=== PATIENT | male | born 1960 | race Caucasian/White ===

== ENCOUNTER → 2019-10-12 00:01 | Outpatient (BNVA) | payer SELFPAY | PROVIDERS: Family Provider Nurse Practitioner; PCP Nurse Practitioner; Visit Provider Nurse Practitioner | DX: I10 Essential (primary) hypertension (principal) | CPT/HCPCS: 80053; 80061; 84443 ==

== ENCOUNTER 2020-01-30 13:16 | Outpatient (CLI) | payer SELFPAY ==
--- NOTE | 2020-01-30 13:23 | USCV_ITS ---
Raad Reynoso Age: 59 Gender: M : 1960 Exam Date: 01/30/2020 13:21 Ordering Phys: ANGELICA Milan APRN Technologist: Deysi Apodaca Exam Location: [facility] Indication: BILATERAL LOWER LEG EDEMA HISTORY: Lower extremity edema. PROCEDURES: Venous duplex imaging was performed in bilateral lower extremities. The following venous structures were evaluated: common femoral vein, profunda vein, proximal portion of the greater saphenous vein, superficial femoral vein, and the popliteal vein. In addition, the posterior tibial and peroneal trunk were evaluated. FINDINGS: Normal 2-D Doppler and augmentation and compressibility throughout the lower extremity venous structures. Additional imaging through the proximal calf veins also reveals no thrombus. Limited evaluation of the greater saphenous vein is patent with no thrombus. CONCLUSIONS No evidence of right lower extremity DVT. No evidence of left lower extremity DVT. Prominent lymph node left groin, nonspecific, but likely reactive Milton Lockwood MD (Electronically Signed) Final Date: 30 January 2020 16:17 S
[2020-01-30 14:35] LABS: Basophils # 0.1 10^3/uL (0.0-0.1); Basophils % 0.5 %; Eosinophils # 0.1 10^3/uL (0.0-0.8); Eosinophils % 0.9 %; Hematocrit 47.1 % (42.0-52.0); Hemoglobin 15.6 g/dL (11.7-16.6); Lymphocytes # 2.8 10^3/uL (0.8-4.8); Lymphocytes % 27.5 %; Mean Corpuscular HGB Conc 33.1 g/dL (30.0-36.0); Mean Corpuscular Volume 93.5 fL (80-94); Mean Platelet Volume 8.8 fL (7.4-10.4); Monocytes # 0.7 10^3/uL (0.2-0.9); Monocytes % 6.8 %; Neutrophils # 6.45 10^3/uL (1.8-7.7); Nucleated Red Blood Cells % 0 %; Platelet Count 326 10^3/cmm (130-400); Red Blood Count 5.04 10^6/uL (4.1-5.3); Red Cell Distribution Width 12.3 % (12.1-15.1); White Blood Count 10.1 10^3/uL (4.0-10.0)
[2020-01-30 14:44] LABS: Bilirubin Urine Neg (NEGATIVE); Blood Urine Neg (Negative); Glucose Urine UA Norm (Normal); Ketones Urine Negative (Negative); Leukocyte Esterase Urine Negative (Negative); Nitrate Urine Negative (Negative); Protein Urine Neg (Negative); RBC Urine 0-4 /hpf (0-2); Specific Gravity, Urine 1.025 (1.005-1.030); Squamous Epithelial Cell Urine 0-4 (0-5); Urine Appearance Clear (CLEAR); Urine Color Yellow (Yellow); Urobilinogen Urine Neg (Negative); pH Urine 5 (5-7)
[2020-01-30 14:45] LABS: Add Urine Culture? No; Bacteria Urine TRACE; Mucus Urine 2+
[2020-01-30 15:03] LABS: Estmated Average Glucose 137; Hemoglobin A1C 6.4 % (4.0-6.0)
[2020-01-30 15:04] LABS: Alanine Aminotransferase 12 U/L (0-41); Albumin Level 4.5 g/dL (3.5-5.2); Alkaline Phosphatase 78 IU/L (40-130); Anion Gap 14.8 (5-19); Aspartate Amino Transferase 15 U/L (0-40); Blood Urea Nitrogen 13 mg/dL (6-20); Calcium 9.8 mg/dL (8.5-10.5); Carbon Dioxide 26 mmol/L (22-29); Chloride 100 mmol/L (98-107); Chol HDL Ratio 6.16 mg/dL (1.0-5.00); Cholesterol 191 mg/dL (0-200); Globulin 3.6 g/dL (1.3-4.6); Glomerular Filtration Rate 62.2 mL/min (90-130); Glucose 98 mg/dL (65-115); HDL Cholesterol 31 mg/dL (60-100); LDL Cholesterol Calculated 120 mg/dL (50-129); LDL HDL Ratio 3.87 RATIO (0.00-3.22); NT Pro B Type Natriuretic Pept 47 pg/mL (0-125); Osmolality Calculated 280 mOsm/kg (285-295); Potassium 3.8 mmol/L (3.5-5.1); Sodium 137 mmol/L (136-145); Thyroid Stimulating Hormone 2.16 uIU/mL (0.27-4.20); Total Bilirubin 0.3 mg/dL (0.15-1.2); Total Protein 8.1 g/dL (6.6-8.7); Triglycerides 200 mg/dL (0-150)
[2020-01-30 15:46] LABS: 25 Hydroxy Vitamin D 26 ng/mL (30-100)
== END 2020-01-30 13:17 | disposition home or self-care (01) ==
LOC: RAD 13:22
PROVIDERS: PCP Nurse Practitioner Family; Visit Provider Nurse Practitioner Family
DX: R60.0 Localized edema (principal); I10 Essential (primary) hypertension; E55.9 Vitamin D deficiency, unspecified; I82.403 Acute embolism and thrombosis of unspecified deep veins of lower extremity, bilateral; Z79.899 Other long term (current) drug therapy; E78.2 Mixed hyperlipidemia
CPT/HCPCS: 36415; 80053; 80061; 81001; 82306; 83036; 83880; 84443; 84550; 85025; 93970

== ENCOUNTER 2020-02-29 11:19 | Emergency (ER) | payer OTHER, SELFPAY ==
[2020-02-29 12:05] VITALS: BP 207/95; PULSE 82; RESP 14; TEMP 36.8; O2SAT 98; BMI 32.1
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
[2020-02-29 12:48] VITALS: RESP 18
[2020-02-29 13:06] LABS: Amphetamines Screen Urine Negative (Negative); Barbiturates Screen Urine Negative (Negative); Benzodiazepines Screen Urine Negative (Negative); Cocaine Screen Urine Negative (Negative); Opiate Screen Urine Negative (Negative); PCP Screen Urine Negative (Negative); THC Screen Urine Negative (Negative)
== END 2020-02-29 13:52 | disposition home or self-care (01) ==
PROVIDERS: Emergency Provider Physician Assistant; PCP Nurse Practitioner Family
DX: S80.01XA Contusion of right knee, initial encounter (principal); F43.20 Adjustment disorder, unspecified; V85.0XXA Driver of special construction vehicle injured in traffic accident, initial encounter; E78.2 Mixed hyperlipidemia
CPT/HCPCS: 12345; 73562; 80306; 99281; 99282

== ENCOUNTER → 2020-11-08 08:24 | Outpatient (BNVA) | payer SELFPAY | PROVIDERS: PCP Nurse Practitioner Family; Visit Provider Urology | DX: R19.09 Other intra-abdominal and pelvic swelling, mass and lump (principal); A63.0 Anogenital (venereal) warts | CPT/HCPCS: 81003 ==

== ENCOUNTER 2021-08-05 12:14 | Outpatient (CLI) | payer OTHER, SELFPAY ==
--- NOTE | 2021-08-05 10:30 | CT_ITS ---
WS: [id number] CT ABDOMEN AND PELVIS WITH CONTRAST HISTORY: R10.84 - Generalized abdominal pain, RIGHT flank and RIGHT lower quadrant pain for 3 weeks. TECHNIQUE: Imaging performed of the abdomen and pelvis with IV contrast. Single phase imaging of the abdomen. Coronal and sagittal reformats are submitted. All CT scans at [facility] use at [address] one of these dose optimization techniques: automated exposure control; mA and/or kV adjustment per patient size (includes targeted exams where dose is matched to clinical indication); or iterative re construction. IV CONTRAST: Omnipaque 300; 95 mL IV. Oral contrast: Yes. DLP: 558.75 mGy.cm COMPARISON: None available. Lower thorax: Lung bases are clear. Heart is normal size. No hiatal hernia. Liver/biliary system: Normal size with no intrahepatic dilatation. Gallbladder: Status post cholecystectomy. Pancreas: Normal size pancreas and pancreatic duct. No adjacent inflammation. Spleen: Normal size spleen. No mass or infarct. Adrenal glands: Normal. Right kidney: Normal. Left kidney: Normal. Aorta: Scattered plaque and intimal thickening throughout the abdominal aorta. There is a large area of soft plaque with slightly irregular borders centered at the level of the renal arteries. Plaque is along the posterior surface of the aorta and causes a significant, greater than 60% stenosis of the lumen. The patent lumen is 5 mm in the plaque thickness is 13 mm. Renal arteries both appear patent. Celiac axis and SMA are both patent. DONNA is patent. Heavy or calcified plaque in the infrarenal aorta extending into the bifurcations. Lymphadenopathy: None. Free fluid: None. GI tract: Stomach is not distended. Very little oral contrast is present. No small bowel obstruction. Tortuous overlapping loops of colon. There is a focal area of very mild narrowing involving the prox imal ascending colon. Luminal narrowing extends over length of 14 mm. There is narrowing of the lumen in the more proximal cecum is moderately fluid distended. No adjacent lymph nodes. Abdominal wall: Small umbilical hernia contains fat. Pelvis: No free fluid or adenopathy within the pelvis. Soft tissue mass extends exophytic from the LE FT inguinal region. Very lobulated superficial soft tissue mass is incompletely included in this exam ination and measures 5.1 x 3.2 cm. There are several adjacent enlarged and mildly hypervascular lymph nodes in the LEFT inguinal region and along the distal iliac chain on the LEFT. Largest lymph node m easures 11 mm. Bones: Unremarkable. CT/CT abdomen pelvis w con* [id number] IMPRESSION: 1. Focal mild stricture involving the proximal ascending colon. This may repre sent an early colon carcinoma. Spasm or peristalsis also included within the di fferential. As this is the location of pain recommend colonoscopy and further e valuation for early colonic neoplasm. 2. Partially included exophytic lobulated soft tissue mass in the LEFT groin. Mass measures at least 5.1 x 3.2 cm. Possibility of the skin neoplasm or large wart should be considered. There are a few adjacent mildly prominent LEFT ingui nal lymph nodes. 3. High-grade stenosis abdominal aorta at the level of the renal arteries. Frank nosis greater than 70%. Soft and calcified plaque. Notified SEHRRI Perez at 08/05/2021 3:16 PM.
--- NOTE | 2021-08-05 12:27 | XR_ITS ---
WS: [id number] LUMBAR SPINE TECHNIQUE: 7 views of the lumbar spine CLINICAL INFORMATION: M54.50 - Low back pain, unspecified COMPARISON: None. FINDINGS: Five iew-vat-xydxyza lumbar vertebral bodies. Mild lumbar curve convex left. Cholecystectomy clips. V ascular calcification. Slight retrolisthesis L2 on L3, L3 on L4, and L4 on L5. Minimal disc space kenyon rowing L5-S1. Anterior hypertrophic changes L3, L4, L5. Aortic calcification. Moderate facet arthropa thy L5-S1. No instability on flexion-extension. XR/XR lumbar spine 6V w f/e [id number] IMPRESSION: 1. Mild lumbar curve convex left. 2. No instability on flexion-extension. 3. Slight retrolisthesis L2 on L3, L3 on L4, and L4 on L5. 4. Minimal disc space narrowing L5-S1.
[2021-08-05 13:08] LABS: Alanine Aminotransferase 12 U/L (0-41); Albumin Level 4.2 g/dL (3.5-5.2); Alkaline Phosphatase 89 IU/L (40-130); Blood Urea Nitrogen 14 mg/dL (6-20); Calcium 9.7 mg/dL (8.5-10.5); Carbon Dioxide 21 mmol/L (22-29); Chloride 100 mmol/L (98-107); Globulin 3.5 g/dL (1.3-4.6); Glomerular Filtration Rate 76.5 mL/min (90-130); Glucose 93 mg/dL (65-115); Osmolality Calculated 278 mOsm/kg (285-295); Sodium 134 mmol/L (136-145); Total Bilirubin 0.5 mg/dL (0.15-1.2); Total Protein 7.7 g/dL (6.6-8.7)
[2021-08-05 13:11] LABS: Anion Gap 17.1 (5-19); Aspartate Amino Transferase 20 U/L (0-40); Potassium 4.1 mmol/L (3.5-5.1)
== END 2021-08-05 12:15 | disposition home or self-care (01) ==
PROVIDERS: PCP Nurse Practitioner Family; Visit Provider Nurse Practitioner Family
DX: M54.50 Low back pain, unspecified (principal); R10.84 Generalized abdominal pain; R50.9 Fever, unspecified; I10 Essential (primary) hypertension; K56.699 Other intestinal obstruction unspecified as to partial versus complete obstruction; I35.0 Nonrheumatic aortic (valve) stenosis
CPT/HCPCS: 36415; 72114; 74177; 80053; 80061; 81003; 82306; 83036; 84443; 85025; G0103; Q9967

== ENCOUNTER → 2021-09-06 09:25 | Outpatient (BNVA) | payer OTHER, SELFPAY | PROVIDERS: PCP Nurse Practitioner Family; Visit Provider Urology | DX: R39.9 Unspecified symptoms and signs involving the genitourinary system (principal); A63.0 Anogenital (venereal) warts; R19.09 Other intra-abdominal and pelvic swelling, mass and lump | CPT/HCPCS: 81003 ==

== ENCOUNTER → 2021-09-27 08:54 | Outpatient (BNVA) | payer OTHER, SELFPAY | PROVIDERS: PCP Nurse Practitioner Family; Visit Provider Surgery | DX: Z20.822 Contact with and (suspected) exposure to COVID-19 (principal) | CPT/HCPCS: 87635 ==

== ENCOUNTER → 2021-09-30 06:04 | Day surgery (SDC) | payer OTHER, SELFPAY ==
[2021-09-27 12:39] VITALS: BMI 28.8
[2021-09-30] VITALS (7 sets, daily range): BP systolic 127–160; BP diastolic 69–104; PULSE 91–100; RESP 15–21; TEMP 36.1–36.9; O2SAT 91–97
[2021-09-30] MEDS: sodium chloride 0.9% 1,000 ML 30 ML IV (06:30)
--- NOTE | 2021-09-30 06:49 | W.PM.OPSUD ---
Surgery/Procedure H&P Update DATE OF PROCEDURE: September 30, 2021 DATE H&P PERFORMED: 09/06/21 H&P UPDATE INFORMATION: I have reviewed H&P completed within last 30 days, I have examined patient prior to procedure, No changes to prior documentation and H&P is in [facility] EMR on date indicated PREOP DIAGNOSIS: diagnostic PLANNED PROCEDURE: Operation Date: 09/30/21 07:00 Proposed Procedures p Colonoscopy(Not Applicable) - Gurvinder Tubbs MD s excision of left groin and perianal warts 65915/05089 x2/a63.0/r19.09/z12.11(Left) - Gurvinder Tubbs MD s Penile condyloma excision(Not Applicable) - Liborio Santos MD
--- NOTE | 2021-09-30 06:51 | ANES.PREANE2 ---
Pre-Anesthetic Assessment Height/Weight: Height 1.75 m Weight 88.451 kg Temp Pulse Resp BP Pulse Ox 98.5 F 91 18 160/82 97 09/30/21 06:34 09/30/21 06:34 09/30/21 06:34 09/30/21 06:34 09/30/21 06:34 Preop Diagnosis: diagnostic Operation Date: 09/30/21 07:00 Proposed Procedures p Colonoscopy(Not Applicable) - Gurvinder Tubbs MD s excision of left groin and perianal warts 24736/33207 x2/a63.0/r19.09/z12.11(Left) - Gurvinder Tubbs MD s Penile condyloma excision(Not Applicable) - Liborio Santos MD Familial anesthetic complications: None Was Beta Nikki taken within 24 hours: N/A Was Clonidine taken within 24 hours: N/A Last intake: Intake Last Liquid Date 09/29/21 Last Liquid Time 20:30 Last Solid Date 09/28/21 Last Solid Time 16:30 Social Tobacco and No alcohol Exam alert, oriented x 3 and regular rate & rhythm B/L wheezing Airway Submandibular: Other (< 2 finger breadths ) Cervical ROM: within normal limits Mallampati: Class III Dentition: chipped and partials Comments: Comments: Very poor dentition Pulmonary Denies COPD, WAYNE CV/HEM Deep Vein Thrombosis and Hypertension METS > 4 Recurrent UTI Hepatic None reported GI Abdominal pain Metabolic None reported Musc/skel Lower Back Pain Chronic pain Neuropsych None reported Anesthetic Plan ASA status: 2 Anesthesia: Anesthesia Evaluation and General Other: We discussed risk and benefits of general anesthesia including PONV, sore throat (sometimes severe), corneal abrasion, positioning and peripheral nerve injuries, life threatening allergic reaction, post operative ICU admission requiring prolonged intubation, stroke, heart attack, , and rare incidences of recall. Patient consents to proceed with general anesthesia. Risk of > 500 ml blood loss (7ml/kg in children): No Medications/Allergies Home Medications Medication Instructions Recorded Confirmed Last Taken Type chlorthalidone 25 mg tablet See Rx Instructions .ROUTE 01/23/21 09/30/21 09/30/21 Rx .COMPLEX #90 tab amlodipine 10 mg tablet See Rx Instructions .ROUTE 04/15/21 09/30/21 09/30/21 Rx .COMPLEX #30 tab Allergies Allergy/AdvReac Type Severity Reaction Status Date / Time lisinopril Allergy Intermediate swelling Verified 09/30/21 06:13 Current Medications Generic Name Dose Route Start Last Admin Trade Name Freq PRN Reason Stop Dose Admin Sodium Chloride 1,000 mls @ 30 mls/hr 09/30/21 06:15 09/30/21 06:30 Sodium Chloride 0.9% IV 10/01/21 06:14 30 mls/hr .Q24H JASS Administration PFSH Anesthesia Medical History Acute generalized abdominal pain with fever Basal cell carcinoma of face Condyloma acuminatum of penis DVT, bilateral lower limbs Low back pain potentially associated with radiculopathy Medication management Mixed hyperlipidemia Prostate cancer screening Symptoms of urinary tract infection Vitamin D deficiency Surgical History Hx of basal cell carcinoma excision S/P cholecystectomy Family History Other CAD (coronary artery disease) Cancer Diabetes Hypertension Social History Smoking and tobacco status: current every day smoker cigarettes Alcohol intake: never Marital status: Current occupational status: employed History of recent travel: No Data Anesthesia Cardiac Studies: No Data to Display
--- NOTE | 2021-09-30 06:54 | W.PM.OPSFHP ---
Same Day Surgery H&P Indication for Procedure/HPI DATE OF PROCEDURE: September 30, 2021 CHIEF COMPLAINT/INDICATIONFOR SURGICAL PROCEDURE: colonoscopy, excision perianal mass PREOP DIAGNOSIS: diagnostic PLANNED PROCEDURE: Operation Date: 09/30/21 07:00 Proposed Procedures p Colonoscopy(Not Applicable) - Gurvinder Tubbs MD s excision of left groin and perianal warts 31846/55742 x2/a63.0/r19.09/z12.11(Left) - Gurvinder Tubbs MD s Penile condyloma excision(Not Applicable) - Liborio Santos MD Medications/Allergies* Allergies/Adverse Reactions Allergy/AdvReac Type Severity Reaction Status Date / Time lisinopril Allergy Intermediate swelling Verified 09/30/21 06:13 Current Medications: Generic Name Dose Route Start Last Admin Trade Name Freq PRN Reason Stop Dose Admin Sodium Chloride 1,000 mls @ 30 mls/hr 09/30/21 06:15 09/30/21 06:30 Sodium Chloride 0.9% IV 10/01/21 06:14 30 mls/hr .Q24H JASS Administration Pertinent History/Comorbid Conditions* Medical History (Updated 08/05/21 @ 09:43 by SHERRI Perez) Acute generalized abdominal pain with fever Basal cell carcinoma of face Condyloma acuminatum of penis DVT, bilateral lower limbs Low back pain potentially associated with radiculopathy Medication management Mixed hyperlipidemia Prostate cancer screening Symptoms of urinary tract infection Vitamin D deficiency Surgical History (Updated 07/29/21 @ 09:01 by Gurvinder Tubbs MD) Hx of basal cell carcinoma excision S/P cholecystectomy Family History (Updated 10/10/19 @ 09:44 by Elisabeth Castaneda LPN) Diabetes CAD (coronary artery disease) Cancer Hypertension Social History Smoking and tobacco status: current every day smoker cigarettes Alcohol intake: never Marital status: Current occupational status: employed History of recent travel: No Pertinent Exam Findings alert, oriented x 3 and regular rate & rhythm Recommendations Surgery/Procedure today Coding Level of Care Code Acute Claim Service Representative for Ijeoma Atkinson
--- NOTE | 2021-09-30 08:07 | PC.NURSE ---
0807 spoke with patients family rory and gave her an update
[2021-09-30] MEDS: neomycin-poly-bacitracin oint 28 gm 1 APPLIC TOPICAL (09:04)
--- NOTE | 2021-09-30 09:23 | P.OP_ITS ---
Operative Report Date of procedure: September 30, 2021 Pre-op diagnosis: 1. Screening colonoscopy 2. Extensive condyloma left groin 3. Extensive perianal condyloma Post-op diagnosis: 1. 5 mm sessile polyps x3 and 7 mm sessile polyp removed with cold snare 2. 12 x 5 cm condyloma left groin 3. 7 x 5 cm condyloma on the right lateral side, 5 x 5 cm condyloma on the left lateral side 4. 2 x 2 centimeter condyloma perineum Procedure done: 1. Colonoscopy with polypectomy using cold snare 2. Excision of condyloma left groin 3. Excision of condyloma perianal region Specimens removed/disposition: 1. Ascending colon polyps 2. Condyloma left groin 3. Perianal condyloma Surgeon: Gurvinder Tubbs Anesthesia: General Condition: stable Disposition: PACU Procedure: The patient was taken to the operating room and placed in lithotomy position under general anesthesia. The colonoscope was introduced and advanced up to cecum with ileocecal valve and appendicular orifice was visualized. The colon prep was fair. Cecum: Normal Ascending colon: 5 mm sessile polyps x3 and 7 mm sessile polyp x1 removed with a cold snare Transverse colon: Normal Descending colon: Normal Sigmoid colon: Normal Rectum: Normal The colonoscope was withdrawn. The perianal area, perineum, external genitalia and left groin was prepped and draped in sterile manner. The condyloma in the left groin measured 12 x 5 cm. 1% lidocaine with 0.5% Marcaine was infiltrated underneath the lesion in the subcutaneous space. Using electrocautery and elliptical incision was made to ex cise the entire condyloma and the lesion was excised from the underlying subcutaneous tissue. Hemostasis was ensured with cautery. The subcutaneous tissues were approximated using interrupted 3-0 Vicryl suture and skin was closed using vertical mattress 3-0 Prolene suture. Antibiotic cream and sterile dressings were used to cover the incision. Using electrocautery the perianal condyloma on the right side measuring 7 x 5 cm was excised and sent to pathology. Hemostasis ensured with cautery. The wound could not be completely closed due to the extent of the defect and was partially approximated using vertical mattress 3-0 Prolene suture. Using electrocautery the perianal condyloma on the left side measuring 5 x 5 cm was excised and sent to pathology. Hemostasis ensured with cautery. The wound could not be completely closed due to the extent of the defect and was partially approximated using vertical mattress 3-0 Prolene suture. Using electrocautery the condyloma in the perineum measuring measuring 2 x 2 cm was excised and sent to pathology. Hemostasis ensured with cautery. The wound was closed with 3-0 Prolene suture. The area adjacent to the anus could not be closed due to the extent of excision and will have to heal by secondary intention. Antibiotic cream and sterile dressings were used to cover the incisions. The patient was extubated and transferred to recovery room in stable condition.
[2021-09-30] MEDS: lidocaine 2% INJ 20 mL INJECTION (09:26)
--- NOTE | 2021-09-30 09:34 | PM.OP ---
Operative Report Date of procedure: September 30, 2021 Pre-op diagnosis: 1. Extensive penile/scrotal condyloma >5 cm Post-op diagnosis: 1. 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 Excision of large penoscrotal condyloma approximately 6.5 cm in length 2. 2 layer closure Specimens removed/disposition: Penile/scrotal condyloma Pathology: Same Surgeon: Tom Anesthesia: General Urine output: Not measured Complications: None Findings: Large approximately 6.5 cm bulky condyloma extending from the left lateral shaft of the penis down onto the scrotum. Smaller condyloma also excised. Flap advancement to close the wound. Because of the redundancy of the scrotum the wound closed without tension. Brief History: Mr. Reynoso is a 60-year-old white male with longstanding history of recurrent condyloma. He is a smoker and continues to do so and has been instructed to quit. Has extensive left groin and left hemiscrotal extending onto the left side of the penis bulky condyloma. Also has multiple condyloma around the anus. Dr. Tubbs was consulted and they plans for colonoscopy, excision of anal condyloma and excision of left groin condyloma Procedure: After routine for evaluation examination and obtaining of informed consent he was taken to the operating suite on 09/30/2021 where general anesthesia was administered without difficulty after appropriate timeout was performed, SCDs confirmed to be functioning, preoperative antibiotics administered, beta-denisa protocol confirmed. Dr. Tubbs performed his procedure and completion of his procedure I joined the case. He was prepped and we draped in usual sterile fashion. The bulky condyloma were carefully inspected and it was decided to make a circumscribing incision all the way around the large bulky 1 and the smaller one as well. This was done sharply and the specimen was excised and sent for pathologic evaluation. The second smaller 1 on the penis was also excised sharply. All warts were completely excised sharply with margin. Utilizing the buffalo device for controlling smoke from cautery, meticulous hemostasis was obtained at the excision bed with electrocautery. It was decided based on the excision and layer of the tissue to close the large defect vertically. After confirmation of meticulous hemostasis, about 5 or 6 subcutaneous tissue sutures with 3-0 Vicryl were utilized to close the depths of the wound and then a 4-0 Vicryl was utilized for subcuticular both interrupted and continuous to approximate the skin edges. The single excision site on the penis was closed in a similar fashion. Cosmetic result was good. Dermabond was applied to the incision lines and after drying a Telfa pad was placed over the incision lines along with fluffed dressing from his groin down to the base of the penis. He tolerated procedure well without complications and was awakened in the operating room and returned to the recovery room in stable condition.
--- NOTE | 2021-09-30 12:18 | ANE.PACU2 ---
Inpatient post-anesthesia follow up: Airway intact: Yes Vital signs: Temperature 97 F Pulse Rate 93 Respiratory Rate 18 Blood Pressure 133/76 Pulse Oximetry 93 Oxygen Delivery Me thod Room Air Oxygen Flow Rate 8 Fraction of Inspir ed Oxygen Hydration adequate: Yes Nausea and vomiting: No Pain level: 1 Mental status: Baseline
== END | disposition home or self-care (01) ==
PROVIDERS: Urology; PCP Nurse Practitioner Family; Visit Provider Surgery
PROC: 0DJD8ZZ Inspection of Lower Intestinal Tract, Via Natural or Artificial Opening Endoscopic (ICD-10-PCS; CPT 45378; principal; 2021-09-30 07:00)
PROC: (CPT 11422; 2021-09-30 07:00)
PROC: (CPT 11426; 2021-09-30 07:00)
DX: Z12.11 Encounter for screening for malignant neoplasm of colon (principal); A63.0 Anogenital (venereal) warts; Z86.718 Personal history of other venous thrombosis and embolism; E78.2 Mixed hyperlipidemia; F17.210 Nicotine dependence, cigarettes, uncomplicated
CPT/HCPCS: 11422; 11426; 12036; 45385; 88305; 88307; J0690; J1170; J2370; J2405; J2704; J3010; J3490; J7030

== ENCOUNTER → 2022-01-07 14:06 | Outpatient (BNVA) | payer OTHER, SELFPAY | PROVIDERS: PCP Nurse Practitioner Family; Visit Provider Nurse Practitioner Family | DX: R05.9 Cough, unspecified (principal) | CPT/HCPCS: 87635 ==

== ENCOUNTER 2022-09-10 13:35 | Outpatient (CLI) | payer OTHER, SELFPAY ==
[2022-09-10 15:08] LABS: HIV 1 & 2 Antibody Non-Reactive (Non-Reactiv); HIV 1 & 2 Antigen Non-Reactive (Non-Reactiv)
[2022-09-10 15:13] LABS: Hepatitis A Antibody IgM Non-Reactive (Nonreactive); Hepatitis B Core AB, Total Non-Reactive (Nonreactive); Hepatitis B Surface Antigen Non-Reactive (Nonreactive); Hepatitis C Virus Antibody Non-Reactive (Nonreactive)
[2022-09-10 15:49] LABS: Hepatitis B Surface AB < 3.5 (11.5-1000)
== END 2022-09-10 13:36 | disposition home or self-care (01) ==
LOC: LAB 13:37
PROVIDERS: PCP Nurse Practitioner; Visit Provider Dermatology
DX: Z77.21 Contact with and (suspected) exposure to potentially hazardous body fluids (principal)
CPT/HCPCS: 36415; 86705; 86706; 86709; 86803; 87340; 87806

== ENCOUNTER 2023-03-06 07:10 | Outpatient (CLI) | payer OTHER, SELFPAY ==
--- NOTE | 2023-03-06 07:19 | USCV_ITS ---
Raad Reynoso Age: 62 Gender: M : 1960 Exam Date: 03/06/2023 07:38 Ordering Phys: Jack Vazquez MD Technologist: SHAHNAZ Exam Location: [facility] [place] Indication: ?Renal Artery Stenosis Aortic Velocity @ SMA (cm/s) 101 RIGHT KIDNEY LEFT KIDNEY Velocity (cm/s) Velocity (cm/s) Sys/Olivo Sys/Olivo Resistive Index Resistive Index 74.2 / 20.4 0.73 Proximal Renal Artery 96.8 / 23.5 0.76 62.1 / 19.0 0.69 Mid Renal Artery 89.3 / 22.3 0.75 62.7 / 18.7 0.70 Distal Renal Artery 86.8 / 23.6 0.73 88.4 / 32.2 0.64 Hilar 91.2 / 20.5 0.78 47.1 / 14.9 0.68 Upper Pole 20.8 / 7.8 0.63 30.2 / 11.7 0.61 Mid Pole 42.4 / 15.6 0.63 25.5 / 8.7 0.66 Lower Pole 32.2 / 11.3 0.65 0.70 Renal Aortic Ratio 0.96 Accleration Index (cm/sec2) 1057.0 Hilar 766.00 0 3009.0 Upper Pole 406.00 0 285.00 Mid Pole 456.00 238.00 Lower Pole 405.00 FINDINGS No comparison. No evidence of abdominal aortic aneurysm. There is no evidence of hemodynamically significant right renal artery stenosis. There is no evidence of hemodynamically significant left renal artery stenosis. CONCLUSIONS No sonographic evidence of renal aortic stenosis or aneurysm. Dr. Carley Monzon DO (Electronically Signed) Final Date: 06 March 2023 09:21 S
== END 2023-03-06 07:11 | disposition home or self-care (01) ==
PROVIDERS: PCP Nurse Practitioner; Visit Provider Family Medicine
DX: I70.1 Atherosclerosis of renal artery (principal)
CPT/HCPCS: 93975

== ENCOUNTER 2024-06-23 12:57 | Outpatient (CLI) | payer OTHER, SELFPAY ==
--- NOTE | 2024-06-23 13:01 | CT_ITS ---
WS: [id number] CTA ABDOMEN TECHNIQUE: Noncontrast plus contrast enhanced CTA of the abdominal aorta with coronal and sagittal re formatted images and additional MIP Images. CLINICAL INFORMATION: ABDOMINAL AORTA STENOSIS COMPARISON: CT 08/05/2021 DLP: 414.[address] scans at [facility] use at least one of these dose optimization techniques: automated e xposure control; mA and/or kV adjustment per patient size (includes targeted exams where dose is matc hed to clinical indication); or iterative reconstruction. FINDINGS: Again seen is moderate stenosis infrarenal abdominal aorta measuring approximately 60%. No aneurysm. Irregular atheromatous plaque in the abdominal aorta with moderate calcified atheromatous disease. Ce liac and SMA are patent. Proximal renal arteries are patent. Lung bases are well aerated. Normal GE junction. Mild hepatomegaly. Cholecystectomy clips. Normal spl een. Normal pancreas. Adrenal glands are normal. Normal renal parenchymal enhancement. No hydronephrosis. Tiny fat-containi ng umbilical hernia. No other significant changes compared to previous. CT/CT angio abdomen 75372 IMPRESSION: 1. Stenosis infrarenal abdominal aorta measuring approximately 60% stable in a ppearance compared to 08/05/2021. 2. Irregular atheromatous disease is not significantly changed in appearance c ompared to previous. 3. Celiac and SMA are patent. 4. Prior cholecystectomy. 5. Hepatomegaly. 6. No other acute findings.
[2024-06-23 13:25] LABS: Glomerular Filtration Rate 67.8 mL/min (90-130)
[2024-06-23] MEDS: iohexol 350 mg/mL 500 mL Btl (per mL) IV (13:35)
== END 2024-06-23 12:58 | disposition home or self-care (01) ==
LOC: RAD 12:58
PROVIDERS: Radiology Neuroradiology; PCP Family Medicine; Visit Provider Family Medicine
DX: I71.43 Infrarenal abdominal aortic aneurysm, without rupture (principal); I70.0 Atherosclerosis of aorta; Z90.49 Acquired absence of other specified parts of digestive tract
CPT/HCPCS: 74175; 82565